=== PATIENT | female | born 1975 | race Caucasian/White ===

== ENCOUNTER 2016-09-28 14:34 | Emergency (ER) | payer OTHER ==
--- NOTE | ~2016-09-28 | CR63 ---
[facility] A Service of [facility] & [facility] RADIOLOGY TEXT RESULTS PATIENT: GABI VALENCIA LOCATION: CFTX : 71 UNIT #: [id number] AGE: [address]: Felecia Saucedo APRN SEX: F ORDER DR: [id number] [facility] [address] [place], [place] [address] [id number] MR#: [id number] Acc #: [id number] NAME: GABI VALENCIA : 1975 SEX: F STUDY DATE/TIME: 09/28/2016 14:11 UNIT: [facility] ROOM: STUDY DESCRIPTION: CR Chest 2 View Attending Physician: Felecia Saucedo A.P.R.N. Ordering Physician: Ed Doctor [id number] [facility] Primary Care Physician: Primary Care Physician No MEDICAL IMAGING REPORT This report is preliminary unless electronic signature is present EXAM Chest 2 views, 09/28/2016 14:11 hours HISTORY 41-year-old woman with 1-month history of cough, congestion and shortness of air, history of bronchitis. COMPARISON 08/16/2016 FINDINGS Upright PA and lateral views of the chest demonstrate normal cardiac, mediastinal and hilar contours. Lungs are well expanded and clear. There is no effusion or pneumothorax. IMPRESSION No acute cardiopulmonary findings. Dictated by... Kandice Benjamin M.D. THIS IS AN ELECTRONICALLY VERIFIED REPORT Kandice Benjamin M.D. at 09/28/2016 5:20 PM Martha TD: 09/28/2016 16:16 JOB #: [id number] MEDICAL IMAGING REPORT Page 1 of 1 COPY
[~2016-09-28 14:34] MED LIST: ALBUTEROL17 GM INH; AZO OTC; BACLOFEN10 MG PO; BACTRIM DS TABL1 TA1 PO; FLEXERIL10 M1 PO; NAPROSYN500 MG PO; NO MEDICATIONS; NORCO 5/325 TAB1 TAB PO; PREDNISONE PO; PYRIDIUM PO; ROBAXIN; SKELAXIN PO; VOLTAREN75 MG PO
== END 2016-09-28 15:00 | disposition home or self-care (01) ==
LOC: CFTX 14:34
DX: J42 Unspecified chronic bronchitis (principal); F17.210 Nicotine dependence, cigarettes, uncomplicated
CPT/HCPCS: 71020; 94640; 99283